=== PATIENT | female | born 1990 | race Caucasian/White ===

== ENCOUNTER 2021-09-06 17:12 | Emergency (ER) | payer BC ==
[2021-09-06 17:29] VITALS: BP 128/65; PULSE 82; TEMP 97.6; BMI 24.5
[2021-09-06] MEDS ORDERED: KETOROLAC TROMETHAMINE 30 MG/1 ML VIAL IM ONE (18:03)
[2021-09-06] MEDS ORDERED: ACETAMINOPHEN/CAFFEINE/BUTALBITAL 1 TAB PO ONE (18:03)
[2021-09-06] MEDS ORDERED: METOCLOPRAMIDE HCL 10 MG TABLET (FP) PO ONE ×2 (18:03→18:54)
[2021-09-06] MEDS ORDERED: ACETAMINOPHEN/CAFFEINE/BUTALBITAL 1 TAB ONE (18:54)
[2021-09-06] MEDS ORDERED: KETOROLAC TROMETHAMINE 30 MG/1 ML VIAL ONE (18:54)
== END 2021-09-06 19:41 | disposition home or self-care (01) ==
LOC: JER 17:12 → JERFT 17:12
PROC: 3E0233Z Introduction of Anti-inflammatory into Muscle, Percutaneous Approach (ICD-10-PCS; principal; 2021-09-06)
DX: G43.909 Migraine, unspecified, not intractable, without status migrainosus (principal)
CPT/HCPCS: 99284-25

== ENCOUNTER 2022-10-11 05:27 | Emergency (ER) | payer BC ==
[2022-10-11] MEDS ORDERED: ACETAMINOPHEN 1000 MG/100 ML BAG IVPB ONE (05:59)
[2022-10-11] MEDS ORDERED: morphine CARPU-JECT 4 MG/1 ML DISP.SYRIN IVPUSH ONE (06:00)
[2022-10-11] MEDS ORDERED: ONDANSETRON 4 MG/2 ML VIAL IVPUSH ONE (06:01)
[2022-10-11] MEDS ORDERED: SODIUM CHLORIDE 0.9% 500 ML INFUS.BAG IV ONE (06:06)
[2022-10-11] MEDS ORDERED: ONDANSETRON 4 MG/2 ML VIAL ONE (06:08)
[2022-10-11 06:17] LABS: BASO % 0.6 % (0-2.0); EOS % 1.6 % (0-4.5); HEMATOCRIT 38.8 % (32.4-45.2); HEMOGLOBIN 12.9 GM/dL (10.7-15.3); LYMPH % 44.8 % (8-40); MCH 26.6 pg (25.7-33.7); MCHC 33.1 g/dl (32.0-36.0); MEAN CELL VOLUME 80.3 fl (80-96); MEAN PLT VOLUME 10.4 fl (7.5-11.1); MONO % 4.7 % (3.8-10.2); NEUT % 48.3 % (42.8-82.8); PLATELET COUNT 286 10^3/uL (134-434); RBC 4.83 M/mm3 (3.60-5.2); RDW 14.3 % (11.6-15.6); WHITE BLOOD COUNT 11.2 K/mm3 (4.0-10.0)
[2022-10-11] MEDS ORDERED: LIDOCAINE 5% TOPICAL PATCH TP ONE (06:26)
[2022-10-11] MEDS ORDERED: diazePAM 5 MG TABLET PO ONE (06:27)
[2022-10-11] MEDS ORDERED: diazePAM 5 MG TABLET ONE (06:29)
[2022-10-11] MEDS ORDERED: LIDOCAINE 5% TOPICAL PATCH ONE (06:29)
[2022-10-11 06:38] LABS: POTASSIUM 4.3 mmol/L (3.5-5.1)
[2022-10-11 06:40] LABS: ALBUMIN 4.2 g/dl (3.4-5.0); CALCIUM 9.4 mg/dL (8.5-10.1)
[2022-10-11 06:41] LABS: BLOOD UREA NITROGEN 13.5 mg/dL (7-18)
[2022-10-11] MEDS ORDERED: morphine CARPU-JECT 2 MG/1 ML DISP.SYRIN IVPUSH ONE (06:41)
[2022-10-11] MEDS ORDERED: KETOROLAC TROMETHAMINE 15 MG/ML VIAL IVPUSH ONE (06:42)
[2022-10-11 06:44] LABS: CREATININE 0.9 mg/dL (0.55-1.3)
[2022-10-11 06:45] LABS: BILIRUBIN,TOTAL 0.2 mg/dL (0.2-1); TOT PROT 7.3 g/dl (6.4-8.2)
[2022-10-11] MEDS ORDERED: KETOROLAC TROMETHAMINE 15 MG/ML VIAL ONE (06:45)
[2022-10-11 06:51] VITALS: TEMP 97.7; BMI 28.3
[2022-10-11 06:51] LABS: URINE APPEARANCE CLEAR; URINE BILIRUBIN NEGATIVE (NEGATIVE); URINE COLOR YELLOW; URINE GLUCOSE (UA) NEGATIVE (NEGATIVE); URINE KETONE NEGATIVE (NEGATIVE); URINE LEUK ESTERASE NEGATIVE (NEGATIVE); URINE NITRITE NEGATIVE (NEGATIVE); URINE PROTEIN NEGATIVE (NEGATIVE); URINE UROBILINOGEN 0.2 mg/dL (0.2-1.0)
[2022-10-11 11:55] VITALS: BP 99/68; PULSE 66; RESP 18
[2022-10-11] MEDS ORDERED: LIDOCAINE PATCH REMOVAL MC SCH (22:00)
== END 2022-10-11 12:22 | disposition home or self-care (01) ==
LOC: JER 05:27
PROC: 3E033NZ Introduction of Analgesics, Hypnotics, Sedatives into Peripheral Vein, Percutaneous Approach (ICD-10-PCS; principal; 2022-10-11)
PROC: 3E033GC Introduction of Other Therapeutic Substance into Peripheral Vein, Percutaneous Approach (ICD-10-PCS; 2022-10-11)
PROC: 3E033GC Introduction of Other Therapeutic Substance into Peripheral Vein, Percutaneous Approach (ICD-10-PCS; 2022-10-11)
DX: M54.6 Pain in thoracic spine (principal); Z20.822 Contact with and (suspected) exposure to COVID-19
CPT/HCPCS: 0241U-QW; 36415; 74176-TC; 80053; 81003; 83690; 84703; 85025; 87086; 99284-25